=== PATIENT | male | born 1980 | race Caucasian/White ===

== ENCOUNTER 2017-04-01 16:51 | Emergency (ER) | payer OTHER ==
[2017-04-01 17:00] VITALS: BP 128/76; PULSE 79; RESP 18; TEMP 97.9
--- NOTE | 2017-04-01 17:13 | ED ---
Upper Extremity HPI - General Chief Complaint: Extremity Injury, Upper Stated Complaint: Arm Injury-[facility] Time Seen by Provider: 04/01/17 17:02 Source: patient, RN notes reviewed Mode of arrival: ambulatory Limitations: no limitations - History of Present Illness Initial Comments: 37-year-old male presents to the emergency Department chief complaint of left arm injury. Patient states it happened a few days ago when he was in [facility]. Patient states he went to the Dr. Carroll x-ray was negative. Patient states that he was told he needs the orthostatic your referral. Patient states she's having pain to the left elbow area. Patient has noticed some weakness and some deformity to his left bicep. Patient states the pain does radiate into the shoulder. He denies any new TRAUMAS or injuries from this. Patient states is not currently having any other symptoms. Patient denies any recent fever, chills, shortness of breath, chest pain, back pain, abdominal pain, nausea vomiting, numbness or tingling, dysuria or hematuria, constipation or diarrhea, headaches or visual changes, or any other current symptoms. - Related Data Allergies Allergy/AdvReac Type Severity Reaction Status Date / Time No Known Allergies Allergy Verified 04/01/17 17:00 Review of Systems ROS Statement: Those systems with pertinent positive or pertinent negative responses have been documented in the HPI. ROS Other: All systems not noted in ROS Statement are negative. Past Medical History Past Medical History: No Reported History History of Any Multi-Drug Resistant Organisms: None Reported Past Surgical History: No Surgical Hx Reported Past Psychological History: No Psychological Hx Reported Smoking Status: Never smoker Past Alcohol Use History: Occasional Past Drug Use History: None Reported General Exam - General Exam Comments Initial Comments: General: The patient is awake and alert, in no distress, and does not appear acutely ill. Neck: The neck is supple, there is no tenderness . Cardiovascular: There is a regular rate and rhythm. No murmur, rub or gallop is appreciated. Respiratory: Lungs are clear to auscultation, respirations are non-labored, breath sounds are equal. No wheezes, stridor, rales, or rhonchi. Musculoskeletal: Sensation intact with 2+ pulses. Left upper extremity. Full range of motion of left elbow left wrist and left shoulder. Patient does appear to have some bruising along the left elbow and he does appear to have a bicep deformity with testing. No specific abnormalityon the left shoulder. Neurological: CN II-XII intact, There are no obvious motor or sensory deficits. Coordination appears grossly intact. Speech is normal. Skin: Skin is warm and dry and no rashes or lesions are noted. Psychiatric: Normal mood and affect. Limitations: no limitations Course Vital Signs 04/01/17 16:55 Temperature 97.9 F Pulse Rate 79 Respiratory 18 Rate Blood Pressure 128/76 O2 Sat by Pulse 97 Oximetry Medical Decision Making - Medical Decision Making 37-year-old male presents emergency Department with a chief complaint of what appears to be a partial left biceps tendon rupture. At this time we discussed follow-up. We discussed return parameters discussed outpatient family's questions. He stated he understood the plan. He will be discharged home. Disposition Clinical Impression: Rupture of left biceps tendon Disposition: HOME SELF-CARE Condition: Stable Instructions: Tendon Rupture (ED) Additional Instructions: Please use medication as discussed. Please follow up with family doctor if symptoms have not improved over the next two days. Please return to the emergency room if your symptoms increase or worsen or for any other concerns. Referrals: Minnie Guevara III, MD [Primary Care Provider] - 1-2 days Mendel Finnegan DO [Doctor of Osteopathic Medicine] - 1-2 days Time of Disposition: 17:13
== END 2017-04-01 17:20 | disposition home or self-care (01) ==
LOC: EC 16:51
DX: S46.212A Strain of muscle, fascia and tendon of other parts of biceps, left arm, initial encounter (principal); X50.0XXA Overexertion from strenuous movement or load, initial encounter; Y92.69 Other specified industrial and construction area as the place of occurrence of the external cause; Y99.0 Civilian activity done for income or pay
CPT/HCPCS: 99283

== ENCOUNTER 2021-02-04 06:40 | Day surgery (SDC) | payer MEDICAID, OTHER ==
[2021-01-31 15:22] VITALS: BMI 25.4
[~2021-02-04 06:40] MED LIST: ACETAMINOPHEN TAB 500 MG TAB PO PRN; DEXAMETHASONE SOD PHOSPHATE 4 MG/ML 1 ML VIAL IV ONE; HEPARIN SODIUM,PORCINE/PF 5,000 UNIT/0.5 ML SYRINGE SQ PRN; LACTATED RINGERS 1,000 ML IV SCH; LIDOCAINE 1% (10MG/ML) FOR IV START INTRADERMA PRN; ONDANSETRON 4 MG/2 ML VIAL IVP ONE; Pre Op ABX Message 1 EACH MISC MISCELLANE ONE; SCOPOLAMINE 1.5MG/72HR PATCH TRANSDERM ONE
[2021-02-04] MEDS ORDERED: HYDROmorphone 0.5 MG/0.5 ML SYRINGE IVP PRN (07:00)
[2021-02-04 07:17] VITALS: TEMP 97.2
[2021-02-04] MEDS ORDERED: LIDOCAINE 1%/EPI 1:200,000 MPF 10 ML VIAL SQ ONE ×2 (07:38)
[2021-02-04] MEDS ORDERED: fentaNYL (PF) 50 MCG/ML 2 ML AMP ONE (07:42)
[2021-02-04] MEDS ORDERED: PROPOFOL 10 MG/ML 20 ML VIAL IV ONE (07:42)
[2021-02-04] MEDS ORDERED: LIDOCAINE 1% INJ 10MG/ML (20 ML MDV) ONE (07:42)
[2021-02-04] MEDS ORDERED: MIDAZOLAM 2 MG/2 ML VIAL ONE (07:42)
[2021-02-04] MEDS ORDERED: SODIUM CHLORIDE 0.9% 100 ML with ceFAZolin 2,000 MG IV ONE ×2 (07:47)
--- NOTE | 2021-02-04 08:19 | P.GSHP ---
History of Present Illness H&P Date: 02/04/21 Chief Complaint: Scalp skin lesion Is a 32-year-old male self to 3 cm scalp lesion on his upper mid scalp in the midline. He presents today for excision Past Medical History Past Medical History: No Reported History Additional Past Medical History / Comment(s): currently taking antibiotic for abscess tooth History of Any Multi-Drug Resistant Organisms: None Reported Past Surgical History: Orthopedic Surgery Additional Past Surgical History / Comment(s): repair left bicep tendon Past Anesthesia/Blood Transfusion Reactions: No Reported Reaction Smoking Status: Former smoker Medications and Allergies Home Medications Medication Instructions Recorded Confirmed Type Alpha Brain 1 tab PO DAILY 01/31/21 01/31/21 History Amoxicillin 500 mg PO Q8H 01/31/21 01/31/21 History Shroom Tech 1 tab PO DAILY 01/31/21 01/31/21 History Allergies Allergy/AdvReac Type Severity Reaction Status Date / Time No Known Allergies Allergy Verified 02/04/21 07:04 Surgical - Exam Vital Signs Temp Pulse Resp BP Pulse Ox 97.2 F L 55 L 16 128/76 97 02/04/21 07:09 02/04/21 07:09 02/04/21 07:09 02/04/21 07:09 02/04/21 07:09 - General well developed, well nourished, no distress - Eyes PERRL - ENT normal pinna - Neck no masses - Respiratory normal expansion - Cardiovascular Rhythm: regular - Abdomen Abdomen: soft, non tender - Integumentary 3 cm scalp lesion upper midline Assessment and Plan Assessment: Scalp lesion. We'll perform excision.
--- NOTE | 2021-02-04 08:21 | P.OP ---
Date of Procedure: 02/04/21 Preoperative Diagnosis: Scalp lesion Postoperative Diagnosis: Epidermal inclusion cyst of scalp Procedure(s) Performed: Excision of scalp skin lesion Anesthesia: HOLLY Surgeon: Frank Irwin Pathology: other (Scalp skin lesion) Condition: stable Disposition: PACU Description of Procedure: The patient's placed on the operative table in supine position. He received IV Mac anesthesia. His scalp was prepped and draped usual sterile fashion. Patient's recent her scalp lesion located in the mid Upper scalp. There is less is 1% local Xylocaine. Using a 15 blade skin was incised and then the epidermal inclusion cyst was dissected free. The Bovie hemostasis. The skin was closed interrupted 3-0 Monocryl suture. Dermabond was applied. Patient top she will was sent to recovery room in condition
[2021-02-04 08:56] VITALS: BP 120/69; PULSE 60; RESP 20
== END 2021-02-04 08:56 | disposition home or self-care (01) ==
LOC: OR 06:40
PROVIDERS: ATTEND Surgery
DX: L72.11 Pilar cyst (principal); K04.7 Periapical abscess without sinus; Z98.890 Other specified postprocedural states; F17.210 Nicotine dependence, cigarettes, uncomplicated
CPT/HCPCS: 88304; 11422; J2250; J1100; J2405; J0690; J2001; J3010; J2704; J1644